=== PATIENT | female | born 1955 | race Caucasian/White ===

== ENCOUNTER 2018-09-06 09:45 | Inpatient (IN) ==
[2018-09-06] MEDS ORDERED: NORMAL SALINE 1,000 ML IV ONE (10:06)
[2018-09-06] MEDS ORDERED: DIATRIZOATE MEGLUMINE, SODIUM 30 ML BTL PO ONE (10:06)
--- NOTE | 2018-09-06 10:17 | ERNOTE ---
Abdominal HPI - Narrative Date of Service: 09/06/18 - General Chief Complaint: Abdominal Pain Time Seen by Provider: 09/06/18 09:59 Source: patient Exam Limitations: no limitations - Immun/Allergies/Home Medications Immunizatons: IMMUNIZATION HX Immunizations Up to Date Yes History of Influenza Vaccine No Hx Pneumococcal Vaccination No Allergies/Adverse Reactions: Allergies Latex, Natural Rubber Allergy (Intermediate, Verified 01/19/18 06:44) welts morphine Allergy (Intermediate, Verified 01/19/18 06:45) Itching Home Medications: HOME MEDICATIONS Omeprazole [Prilosec] 40 mg PO DAILY PRN 01/23/16 [Last Taken Unknown] - History of Present Illness Narrative: Patient presents to the ED for abdominal pain. She relates that she has f requent problems with diverticular disease. She has had approx 4 days of left low abdominal pain. This has been fluctuating intensity but overall worsening. No vomiting but has had low grade fever. Mucous stool but no diarrhea. She has not seen anyone else for this. Pain can be severe at times. Now moderate. No dysuria. Nothing really seems to make it better or worse. Timing: constant, other - fluctuating intensity Quality: severe Activities at Onset: none Modifying Factors - (Improves): Present: other - nothing Modifying Factors - (Worsens): Present: other - nothing Associated Symptoms: Present: fever/chills. Absent: chest pain, diarrhea-gross blood, vomiting, shortness of breath, swelling/mass in abdomen Prior Abdominal Problems: Present: other - diverticular disease Prior Treatment: Absent: recently seen, currently on antibiotics Review of Systems - Review of Systems Constitutional: Present: fever EYE: Present: no symptoms reported ENT: Present: no symptoms reported Respiratory: Absent: shortness of breath Cardiology: Absent: chest pain Gastrointestinal/Abdominal: Present: See HPI Genitourinary: Absent: dysuria Neurological: Absent: weakness All Other Systems: All systems neg except as marked Medical History (Updated 09/06/18 @ 10:17 by Frank Browning MD) Pulmonary hypertension (Chronic) COPD (chronic obstructive pulmonary disease) (Chronic) Acne vulgaris Onset Date: Unknown Cardiac murmur Onset Date: ~11/09/17 Diverticulosis Onset Date: ~2006 Endometriosis Onset Date: Unknown GERD (gastroesophageal reflux disease) Onset Date: ~11/09/17 Myalgia and myositis Onset Date: Unknown Osteoarthritis Onset Date: ~11/09/17 Ovarian cyst Onset Date: ~2005 Tear of meniscus of left knee Onset Date: Unknown Surgical History: Surgical History (Updated 02/23/18 @ 11:55 by Prisca De La Cruz RN) History of appendectomy Onset Date: ~1967 History of arthroscopic knee surgery Onset Date: ~02/12/16 History of bladder suspension procedure Onset Date: ~03/07/08 History of colonoscopy Onset Date: 01/19/18 10/15/06 Tinguely-hyperplastic polyp, extensive sigmoid diverticulosis. 01/19/18 [place]-extensive pancolonic diverticulosis. Recheck 10 yrs. History of esophagogastroduodenoscopy Onset Date: ~04/28/11 Tinguely-moderate chronic inflammation History of salpingo-oophorectomy Onset Date: ~2005 History of total vaginal hysterectomy (TVH) Onset Date: ~1981 History of tubal ligation Onset Date: ~1979 Hx of cholecystectomy Onset Date: ~1957 S/P foot surgery, right Onset Date: ~08/2004 Ureteral stent retained Onset Date: ~2005 Family History: Family History (Updated 12/15/17 @ 10:53 by Prisca De La Cruz RN) Aunt Diabetes Brother Hypertension 3 brothers AAA (abdominal aortic aneurysm) 2 brothers Heart disease 2 brothers w/CABG Diabetes 1 brother Father , age 67 Heart disease Hypertension Grandmother Diabetes Uncle Diabetes Mother , age 77-breast cancer Cancer breast Diabetes Hypertension Brother , age 67-lung cancer No problems noted. Social History: Preferred Language Danish Do you have any christian or No cultural preference? Smoking Status Current every day smoker Have you smoked in the past 12 Yes months Do you dip or chew tobacco No Abuse History No History of abuse Psych History No pertinent hx Alcohol Use occasionally Drug Use none (Last Updated 12/23/17 @ 11:01 by Simon Carias MD) No Social History Section defined Physical Exam - Physical Exam General Appearance: Present: alert, no apparent distress Head Exam: Present: normal inspection, no evidence of injury Eye Exam: Normal inspection: bilateral, PERRL: bilateral Ears, Nose, Throat: Present: normal ENT inspection Neck: Present: normal inspection Respiratory: Present: no respiratory distress, normal breath sounds, no accessory muscle use, lungs clear Cardiovascular/Chest: Present: regular rate, rhythm Gastrointestinal/Abdominal: Present: normal bowel sounds, soft, other - there is left low abdominal tendenress to palpation. NO clear acute peritoneal signs. Non-surgical exam at this point Back Exam: Absent: CVA tenderness (R), CVA tenderness (L) Extremity Exam: Present: normal range of motion Neurological Exam: Present: alert, no motor/sensory deficits Skin Exam: Present: normal color, warm/dry Progress - Results and Orders Patient's Lab Results:: I have reviewed the patient's lab results. - Vital Signs Patient's Vital Signs:: I have reviewed the patient's vital signs. Vital Signs: Vital Signs 09/06/18 10:01 Temperature 37.1 C Pulse Rate 101 H Respiratory Rate 14 Blood Pressure 194/95 H O2 Sat by Pulse Oximetry 96 - CT/Ultrasound CT/Ultrasound Narrative: I reviewed official radiology report for CT scan abd/Pelvis - Progress/Reassessment Chief Complaint: Abdominal Pain Progress Note-Subjective: 09/06/18 14:28 IV fluids and IV antibiotics given. D/W Dr Carias and Dr Cross. [facility] Patient informed and agreeable. Departure Clinical Impression: Abdominal pain, Diverticulitis, Colon perforation - Departure Disposition: Still a patient Condition: Stable Referrals: Drew Cross MD [Primary Care Provider] -
[2018-09-06 10:30] LABS: Hematocrit 44.7 % (37.0-47.0); Hemoglobin 15.4 gm/dL (12.5-16.0); Mean Cell Volume 95.3 fl (78-100); Mean Corpuscular Hemoglobin 32.8 pg (27-31); Mean Corpuscular Hgb Conc 34.5 g/dl (32-36); Mean Platelet Volume 9.9 fl (8-12.5); Neutrophil # 13.1 K/mm3 (1.3-6.0); Neutrophil % 81.5 % (42-75.0); Platelet Count 208 K/mm3 (150-450); Red Blood Count 4.69 M/mm3 (4.2-5.4); Red Cell Distribution Width 13.2 % (11.5-14.0); White Blood Count 16.1 K/mm3 (4.0-10.5)
[2018-09-06 10:42] LABS: Albumin * 3.5 gm/dl (3.4-5.0); Anion Gap 14.6 mmol/L (6.8-13.8); BUN/Creatinine Ratio 13.7 (9.0-21.6); Bilirubin, Total 0.7 mg/dL (0.0-1.1); Ca. Corrected For Albumin 9.2 mg/dL (8.4-10.2); Calcium * 9.1 mg/dL (7.9-10.9); Carbon Dioxide 25.4 mmol/L (24-32.6); Total Protein 8.1 gm/dL (6.2-8.2)
[2018-09-06 10:47] LABS: Urine Bilirubin Negative (NEGATIVE); Urine Blood 25 /ul (NEGATIVE); Urine Ketone Negative (NEGATIVE); Urine Nitrite Negative (NEGATIVE); Urine Protein Negative (NEGATIVE); Urine Specific Gravity <=1.005 SP.GR. (1.005-1.010); Urine Urobilinogen Normal (NORMAL)
[2018-09-06 10:53] LABS: Urine Appearance Clear (CLEAR); Urine Bacteria None Seen; Urine Color Yellow; Urine RBC 0-5 /hpf (0-5); Urine WBC None Seen /hpf (0-5)
[2018-09-06] MEDS ORDERED: PIPERACILLIN SODIUM/TAZOBACTAM 3.375 GM in DEXTROSE 5 % IN WATER 100 ML IV ONE ×2 (13:06)
[2018-09-06] MEDS ORDERED: metroNIDAZOLE/SODIUM CHLORIDE 500 MG/100 ML BAG IV SCH (13:15)
[2018-09-06] MEDS ORDERED: PIPERACILLIN SODIUM/TAZOBACTAM 3.375 GM in DEXTROSE 5 % IN WATER 100 ML IV SCH ×2 (14:45)
[2018-09-06] MEDS ORDERED: NORMAL SALINE 1,000 ML IV PRN (14:45)
--- NOTE | 2018-09-06 15:41 | HP ---
Chief Complaint - Chief Complaint Date of Service: 09/06/18 Time of Service: 15:36 Chief Complaint: Lower abdominal pain, fever and chills History of Present Illness: Patient is 63-year-old white female with past medical history significant for di verticulosis, was in her usual state of health until 3 days prior to admission when she began having lower abdominal pain. The pain continued to worsen, with her having significant mucousy diarrhea, F/C the day prior to admission. The pain reached a threshold where she had to come to the ER and was found to have an elevated WBC to 16K and diverticulitis with perforation on CT. She was admitted to inpatient for bowel rest, IV abx and possibly surgical consult for intervention, though the GS felt this was amenable to just bowel rest and IV abx for now. Medical History (Updated 09/06/18 @ 16:18 by Drwe Cross MD) Pulmonary hypertension (Chronic) COPD (chronic obstructive pulmonary disease) (Chronic) Acne vulgaris Onset Date: Unknown Cardiac murmur Onset Date: ~11/09/17 Diverticulosis Onset Date: ~2006 Endometriosis Onset Date: Unknown GERD (gastroesophageal reflux disease) Onset Date: ~11/09/17 Myalgia and myositis Onset Date: Unknown Osteoarthritis Onset Date: ~11/09/17 Ovarian cyst Onset Date: ~2005 Tear of meniscus of left knee Onset Date: Unknown Surgical History: Surgical History (Updated 02/23/18 @ 11:55 by Prisca De La Cruz RN) History of appendectomy Onset Date: ~1967 History of arthroscopic knee surgery Onset Date: ~02/12/16 History of bladder suspension procedure Onset Date: ~03/07/08 History of colonoscopy Onset Date: 01/19/18 10/15/06 Tinguely-hyperplastic polyp, extensive sigmoid diverticulosis. 01/19/18 [place]-extensive pancolonic diverticulosis. Recheck 10 yrs. History of esophagogastroduodenoscopy Onset Date: ~04/28/11 Tinguely-moderate chronic inflammation History of salpingo-oophorectomy Onset Date: ~2005 History of total vaginal hysterectomy (TVH) Onset Date: ~1981 History of tubal ligation Onset Date: ~1979 Hx of cholecystectomy Onset Date: ~1957 S/P foot surgery, right Onset Date: ~08/2004 Ureteral stent retained Onset Date: ~2005 Family History: Family History (Updated 12/15/17 @ 10:53 by Prisca De La Cruz RN) Aunt Diabetes Brother Hypertension 3 brothers AAA (abdominal aortic aneurysm) 2 brothers Heart disease 2 brothers w/CABG Diabetes 1 brother Father , age 67 Heart disease Hypertension Grandmother Diabetes Uncle Diabetes Mother , age 77-breast cancer Cancer breast Diabetes Hypertension Brother , age 67-lung cancer No problems noted. 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 Smoking Status Current every day smoker Have you smoked in the past 12 Yes months Do you dip or chew tobacco No Abuse History No History of abuse Psych History No pertinent hx Alcohol Use occasionally Drug Use none (Last Updated 12/23/17 @ 11:01 by Simon Carias MD) No Social History Section defined Review Of Systems (GEN) - Review of Systems Generalized/Overall Review: Present: Chills, Fever, Malaise. Absent: Diaphoresis, Fatigue, Weight loss EENTM: Present: No Symptoms Reported Respiratory: Present: Cough. Absent: Shortness of Breath, Wheezing Cardiac: Absent: Chest Pain, Edema Abdominal: Present: Nausea, Abdominal Pain, Diarrhea. Absent: Vomiting, Hematemesis, Constipation, Bright blood from rectum Genitourinary: Present: Frequency. Absent: Burning, Itching, Urgency, Dysuria Musculoskeletal: Present: No Symptoms Reported Neurological: Present: No Symptoms Reported Skin: Present: No Symptoms Reported Endocrine: Present: No Symptoms Reported Immunizations: IMMUNIZATION HX Immunizations Up to Date Yes History of Influenza Vaccine No Hx Pneumococcal Vaccination No Allergies/Adverse Reactions: Allergies Allergy/AdvReac Type Severity Reaction Status Date / Time Latex, Natural Rubber Allergy Intermediate welts Verified 01/19/18 06:44 morphine Allergy Intermediate Itching Verified 01/19/18 06:45 Home Medications: HOME MEDICATIONS Omeprazole [Prilosec] 40 mg PO DAILY PRN 01/23/16 [Last Taken Unknown] Exam - Exam Vital Signs: Vital Signs - Last Taken Temp 37.2 C 09/06/18 14:58 Pulse 82 09/06/18 14:58 Resp 18 09/06/18 14:58 BP 179/88 H 09/06/18 14:58 Pulse Ox 92 L 09/06/18 14:58 Constitutional: Present: Alert, Oriented x3, Cooperative, Mild distress, Overweight ENT Exam: Present: hearing grossly normal Eye Exam: bilateral eye: normal inspection, PERRL, EOMI Neck: Present: supple Respiratory: Present: lungs clear, normal breath sounds, no respiratory distress, no accessory muscle use Cardiovascular/Chest: Present: regular rate, rhythm, systolic murmur - LUSB / Abdomen: Present: soft, nondistended, no rebound tenderness, no hepatospenomegaly, tender - suprapubic area, hypoactive /Rectal: Present: Exam deferred Extremity: Present: no pedal edema Skin Exam: Present: normal color, warm/dry Neurologic: Present: tripe finisher II-XII nml as tested, normal mood/affect Appearance: Present: appropriate appearance, appropriate insight, neat Eye contact: Present: cooperative, good eye contact, normal speech Thoughts: Present: normal thought pattern, no apparent hallucination Diagnostic Studies: Abnormal Lab Results 09/06/18 09/06/18 09/06/18 Range/Units 10:18 10:18 10:39 WBC 16.1 H (4.0-10.5) K/mm3 MCH 32.8 H (27-31) pg Immature Gran # (Auto) 0.05 H (0.000-0.0310) K/mm3 Neutrophils % 81.5 H (42-75.0) % Lymphocytes % 8.5 L (20-51) % Neutrophils # 13.1 H (1.3-6.0) K/mm3 Lymphocytes # 1.37 L (1.5-3.5) k/mm3 Monocytes # 1.4 H (0.0-1.0) k/mm3 ESR (0-15) mm/hr Anion Gap 14.6 H (6.8-13.8) mmol/L Urine Blood 25 H (NEGATIVE) /ul 09/06/18 Range/Units 10:48 WBC (4.0-10.5) K/mm3 MCH (27-31) pg Immature Gran # (Auto) (0.000-0.0310) K/mm3 Neutrophils % (42-75.0) % Lymphocytes % (20-51) % Neutrophils # (1.3-6.0) K/mm3 Lymphocytes # (1.5-3.5) k/mm3 Monocytes # (0.0-1.0) k/mm3 ESR 61 H (0-15) mm/hr Anion Gap (6.8-13.8) mmol/L Urine Blood (NEGATIVE) /ul Laboratory Results WBC 16.1 K/mm3 (4.0-10.5) H 09/06/18 10:18 RBC 4.69 M/mm3 (4.2-5.4) 09/06/18 10:18 Hgb 15.4 gm/dL (12.5-16.0) 09/06/18 10:18 Hct 44.7 % (37.0-47.0) 09/06/18 10:18 MCV 95.3 fl (78-100) 09/06/18 10:18 MCH 32.8 pg (27-31) H 09/06/18 10:18 MCHC 34.5 g/dl (32-36) 09/06/18 10:18 RDW 13.2 % (11.5-14.0) 09/06/18 10:18 Plt Count 208 K/mm3 (150-450) 09/06/18 10:18 MPV 9.9 fl (8-12.5) 09/06/18 10:18 Immature Gran % (Auto) 0.30 % (0.001-0.429) 09/06/18 10:18 Immature Gran # (Auto) 0.05 K/mm3 (0.000-0.0310) H 09/06/18 10:18 81.5 % (42-75.0) H 09/06/18 10:18 8.5 % (20-51) L 09/06/18 10:18 8.9 % (0.0-9) 09/06/18 10:18 0.6 % (0.0-3.0) 09/06/18 10:18 0.2 % (0.0-1.0) 09/06/18 10:18 Nucleated RBC % 0.0 k/mm3 (0-1) 09/06/18 10:18 13.1 K/mm3 (1.3-6.0) H 09/06/18 10:18 1.37 k/mm3 (1.5-3.5) L 09/06/18 10:18 1.4 k/mm3 (0.0-1.0) H 09/06/18 10:18 0.1 k/mm3 (0.0-0.7) 09/06/18 10:18 Absolute Basophils 0.0 k/mm3 (0.0-0.1) 09/06/18 10:18 ESR 61 mm/hr (0-15) H 09/06/18 10:48 Sodium 138 mmol/L (132-142) 09/06/18 10:18 138 mmol/L (130-142) 09/06/18 10:18 Potassium 4.0 mmol/L (3.4-4.6) 09/06/18 10:18 Chloride 102 mmol/L (97-106) 09/06/18 10:18 Carbon Dioxide 25.4 mmol/L (24-32.6) 09/06/18 10:18 14.6 mmol/L (6.8-13.8) H 09/06/18 10:18 BUN 10 mg/dL (3-23) 09/06/18 10:18 0.73 mg/dL (0.4-1.4) 09/06/18 10:18 Est GFR (Non-Af Amer) 86 mL/min (60-130) 09/06/18 10:18 13.7 (9.0-21.6) 09/06/18 10:18 99 mg/dL (70-110) 09/06/18 10:18 Calcium 9.1 mg/dL (7.9-10.9) 09/06/18 10:18 Calcium Adj for Albumin 9.2 mg/dL (8.4-10.2) 09/06/18 10:18 0.7 mg/dL (0.0-1.1) 09/06/18 10:18 AST 21 U/L (0-48) 09/06/18 10:18 ALT 30 U/L (19-67) 09/06/18 10:18 57 U/L (50-170) 09/06/18 10:18 8.1 gm/dL (6.2-8.2) 09/06/18 10:18 3.5 gm/dl (3.4-5.0) 09/06/18 10:18 Yellow 09/06/18 10:39 Clear (CLEAR) 09/06/18 10:39 6.0 pH (5.0-7.0) 09/06/18 10:39 Ur Specific [place] <=1.005 SP.GR. (1.005-1.010) 09/06/18 10:39 Negative mg/dL (NEGATIVE) 09/06/18 10:39 Negative mg/dL (NEGATIVE) 09/06/18 10:39 Negative mg/dL (NEGATIVE) 09/06/18 10:39 25 /ul (NEGATIVE) H 09/06/18 10:39 Negative (NEGATIVE) 09/06/18 10:39 Negative mg/dl (NEGATIVE) 09/06/18 10:39 Normal EU/dl (NORMAL) 09/06/18 10:39 Ur Leukocyte Esterase Negative /ul (NEGATIVE) 09/06/18 10:39 0-5 /hpf (0-5) 09/06/18 10:39 None seen /hpf (0-5) 09/06/18 10:39 Ur Epithelial Cells None seen /hpf (0-5) 09/06/18 10:39 None seen (NONE) 09/06/18 10:39 No culture indicated 09/06/18 10:39 Assessment/Plan - Assessment/Plan (1) Diverticulitis of colon with perforation Assessment: She will need IV abx and bowel rest. Typical time frame is 7 days, depending on how she does clinically. Will follow CBC and ESR (which was 64) and her clinical sx. Consider at least doing clear liquids in a few days if things are getting better. Will do pain control with toradol for now. consider dilaudid if > 5 days of treatment needed. Problem: Acute Qualifiers: Diverticulitis bleeding: without bleeding Qualified Code(s): K57.20 - Diverticulitis of large intestine with perforation and abscess without bleeding (2) COPD (chronic obstructive pulmonary disease) Assessment: stable, no treatment at this time. Problem: Chronic Qualifiers: COPD type: chronic bronchitis Chronic bronchitis type: simple Qualified Code(s): J41.0 - Simple chronic bronchitis (3) Discharge planning issues Assessment: Given patients perforation of her colon, her elevated WBC to 16K and her F/C, she will need to be inpatient for IVF, IV abx and bowel rest. She is at high risk for morbidity, if not mortality if discharged home too quickly without adequate bowel rest and IV abx. She is also tachycardic with elevated BP and PE findings consistent with dehydration, so will give her a fluid bolus and then IVF to rehydrate her, which would be very difficult to do outpatient. I anticipate her being here a min. of 2 midnights with repeat CBC's and ESR and PE to follow progress of her perforation and CMP to follow K levels due to her diverticulitis and IVF. We will rest her bowel a minimum of 24, more likely 48hrs before we start her on a clear liquid diet, advancing as tolerated, monitoring sx and labs to assess improvement or worsening. Will repeat CT if she declines with surgical consult for possible surgery. Surgery is aware of the situation at this time. Problem: Acute
[2018-09-06] MEDS: NORMAL SALINE 1,000 ML IV PRN (16:40)
[2018-09-06] MEDS: KETOROLAC TROMETHAMINE 30 MG/ML VIAL IV PRN (17:07)
[2018-09-06] MEDS: PANTOPRAZOLE SODIUM 40 MG in NORMAL SALINE 100 ML IV SCH (17:09)
[2018-09-06] MEDS: PIPERACILLIN SODIUM/TAZOBACTAM 3.375 GM in DEXTROSE 5 % IN WATER 100 ML IV SCH ×2 (20:43)
[2018-09-06] MEDS: SACCHAROMYCES BOULARDII 250 MG CAPSULE PO SCH (20:43)
[2018-09-07] MEDS: NORMAL SALINE 1,000 ML IV PRN ×2 (00:22→08:29)
[2018-09-07] MEDS: PIPERACILLIN SODIUM/TAZOBACTAM 3.375 GM in DEXTROSE 5 % IN WATER 100 ML IV SCH ×6 (05:01→21:45)
[2018-09-07 05:33] LABS: Hematocrit 40.1 % (37.0-47.0); Hemoglobin 13.3 gm/dL (12.5-16.0); Mean Cell Volume 96.6 fl (78-100); Mean Corpuscular Hgb Conc 33.2 g/dl (32-36); Mean Platelet Volume 9.6 fl (8-12.5); Neutrophil # 9.2 K/mm3 (1.3-6.0); Neutrophil % 78.1 % (42-75.0); Platelet Count 174 K/mm3 (150-450); Red Blood Count 4.15 M/mm3 (4.2-5.4); Red Cell Distribution Width 13.2 % (11.5-14.0); White Blood Count 11.8 K/mm3 (4.0-10.5)
--- NOTE | 2018-09-07 07:15 | PN ---
Subjective - Date and Time Seen Date: 09/07/18 Time: 07:08 Subjective Narrative: Pt. states she is feeling better this am. Diarrhea throughout the night, but no blood and no more F/C. Denies nausea and vomiting. Is actually getting hungry. Abdominal pain is greatly improved. Denies SOB or cough. Objective - Review of Systems Generalized/Overall Review: Denies: Chills, Fever EENTM: Reports: No Symptoms Reported Respiratory: Denies: Cough, Shortness of Breath Cardiac: Denies: Chest Pain Abdominal: Reports: Abdominal Pain, Diarrhea. Denies: Nausea, Vomiting, Constipation, Bright blood from rectum Genitourinary Symptoms: Reports: No Symptoms Reported Musculoskeletal Complaints: Reports: No Symptoms Reported Neurological: Reports: No Symptoms Reported Skin: Reports: No Symptoms Reported Endocrine: Reports: No Symptoms Reported - Vitals Vitals: Last Vital Signs Temp 36.8 C 09/07/18 03:00 Pulse 81 09/07/18 03:00 Resp 18 09/07/18 03:00 BP 143/70 09/07/18 03:00 Pulse Ox 93 09/07/18 03:00 - Abnormal Lab Findings Abnormal Lab Findings: Abnormal Lab Results 09/06/18 09/06/18 09/06/18 Range/Units 10:18 10:18 10:39 WBC 16.1 H (4.0-10.5) K/mm3 RBC (4.2-5.4) M/mm3 MCH 32.8 H (27-31) pg Immature Gran # (Auto) 0.05 H (0.000-0.0310) K/mm3 Neutrophils % 81.5 H (42-75.0) % Lymphocytes % 8.5 L (20-51) % Neutrophils # 13.1 H (1.3-6.0) K/mm3 Lymphocytes # 1.37 L (1.5-3.5) k/mm3 Monocytes # 1.4 H (0.0-1.0) k/mm3 ESR (0-15) mm/hr Anion Gap 14.6 H (6.8-13.8) mmol/L Urine Blood 25 H (NEGATIVE) /ul 09/06/18 09/07/18 Range/Units 10:48 05:15 WBC 11.8 H D (4.0-10.5) K/mm3 RBC 4.15 L (4.2-5.4) M/mm3 MCH 32.0 H (27-31) pg Immature Gran # (Auto) (0.000-0.0310) K/mm3 Neutrophils % 78.1 H (42-75.0) % Lymphocytes % 11.6 L (20-51) % Neutrophils # 9.2 H (1.3-6.0) K/mm3 Lymphocytes # 1.37 L (1.5-3.5) k/mm3 Monocytes # (0.0-1.0) k/mm3 ESR 61 H (0-15) mm/hr Anion Gap (6.8-13.8) mmol/L Urine Blood (NEGATIVE) /ul - Exam Constitutional: Present: Alert, Oriented x3, Cooperative, Mild distress ENT Exam: Present: hearing grossly normal Neck: Present: supple Respiratory: Present: lungs clear, normal breath sounds, no respiratory distress, no accessory muscle use Cardiovascular/Chest: Present: regular rate, rhythm, systolic murmur - LUSB 3- 08/20 Abdomen: Present: Normal bowel sounds, soft, nondistended, tender - suprapubic area. Absent: rebound tenderness /Rectal: Present: Exam deferred Extremity: Present: no pedal edema, no calf tenderness Skin Exam: Present: normal color Neurologic: Present: laundry presser II-XII nml as tested, normal mood/affect, oriented x 3 Appearance: Present: appropriate appearance, appropriate insight, neat Eye contact: Present: cooperative, good eye contact, normal speech Thoughts: Present: normal thought pattern, no apparent hallucination Assessment/Plan - Problems/Diagnosis (1) Diverticulitis of colon with perforation Problem: Acute Qualifiers: Diverticulitis bleeding: without bleeding Qualified Code(s): K57.20 - Diverticulitis of large intestine with perforation and abscess without bleeding Narrative: improving based on WBC down to 11K this am and improved sx. will continue bowel rest, IVF, IV abx and recheck CBC and ESR in AM. When WBC has normalized and ESR < 20 we can trial her on clear liquids, but continue IV abx. (2) COPD (chronic obstructive pulmonary disease) Problem: Chronic Qualifiers: COPD type: chronic bronchitis Chronic bronchitis type: simple Qualified Code(s): J41.0 - Simple chronic bronchitis Narrative: stable, no issues or treatment at this time needed. (3) Discharge planning issues Problem: Acute Narrative: typical course is 7 days of IV abx. She is greatly improved from yesterday, but will need to transition to a diet prior to going home, even if it is a clear liquid diet. Will continue to follow sx and labs. Discharge will be pending how she does, whether we do trial with oral abx prior to discharge or finish the IV abx course. The will depend on sx, vitals and labs as well as how any a dvancement of diet does for her. Advancing to fast will end up in her getting worse and possibly needing surgery or interventional drainage of any abscess, which we hope to avoid.
[2018-09-07] MEDS: SACCHAROMYCES BOULARDII 250 MG CAPSULE PO SCH ×2 (10:13→21:44)
[2018-09-07] MEDS: KETOROLAC TROMETHAMINE 30 MG/ML VIAL IV PRN (10:21)
[2018-09-07] MEDS: PANTOPRAZOLE SODIUM 40 MG in NORMAL SALINE 100 ML IV SCH (16:11)
[2018-09-07] MEDS ORDERED: ONDANSETRON HCL/PF 2 MG/ML VIAL IV PRN (16:13)
[2018-09-08] MEDS: KETOROLAC TROMETHAMINE 30 MG/ML VIAL IV PRN ×2 (01:46→19:05)
[2018-09-08] MEDS: PIPERACILLIN SODIUM/TAZOBACTAM 3.375 GM in DEXTROSE 5 % IN WATER 100 ML IV SCH ×6 (04:40→20:59)
[2018-09-08 05:17] LABS: Hematocrit 38.4 % (37.0-47.0); Hemoglobin 12.9 gm/dL (12.5-16.0); Mean Corpuscular Hemoglobin 32.3 pg (27-31); Mean Corpuscular Hgb Conc 33.6 g/dl (32-36); Mean Platelet Volume 9.1 fl (8-12.5); Neutrophil # 9.1 K/mm3 (1.3-6.0); Neutrophil % 77.8 % (42-75.0); Platelet Count 168 K/mm3 (150-450); Red Cell Distribution Width 12.7 % (11.5-14.0); White Blood Count 11.6 K/mm3 (4.0-10.5)
[2018-09-08 05:48] LABS: Albumin * 2.7 gm/dl (3.4-5.0); Anion Gap 14.1 mmol/L (6.8-13.8); BUN/Creatinine Ratio 15.1 (9.0-21.6); Bilirubin, Total 0.6 mg/dL (0.0-1.1); Ca. Corrected For Albumin 9.1 mg/dL (8.4-10.2); Calcium * 8.4 mg/dL (7.9-10.9); Carbon Dioxide 25.3 mmol/L (24-32.6); Potassium 3.4 mmol/L (3.4-4.6); Total Protein 6.8 gm/dL (6.2-8.2)
--- NOTE | 2018-09-08 07:24 | PN ---
Subjective - Date and Time Seen Date: 09/08/18 Time: 07:14 Subjective Narrative: Pt. states she is feeling better this am. Diarrhea throughout the night, but no blood and no F/C. Denies nausea and vomiting. Is actually getting hungry. Abdominal pain is greatly improved. Denies SOB or cough. Still discomfort in the suprapubic, RLQ area, but it continues to improve. She would like to try a clear liquid diet as she is hungry. she felt a little dizzy and nauseated yesterday afternoon, but this seems to have resolved. Objective - Review of Systems Generalized/Overall Review: Reports: No Symptoms Reported EENTM: Reports: No Symptoms Reported Respiratory: Reports: No Symptoms Reported Cardiac: Reports: No Symptoms Reported Abdominal: Reports: Abdominal Pain, Diarrhea. Denies: Nausea, Vomiting, Bright blood from rectum Genitourinary Symptoms: Reports: No Symptoms Reported Musculoskeletal Complaints: Reports: No Symptoms Reported Neurological: Reports: No Symptoms Reported Skin: Reports: No Symptoms Reported Endocrine: Reports: No Symptoms Reported - Vitals Vitals: Last Vital Signs Temp 36.7 C 09/08/18 06:56 Pulse 64 09/08/18 06:56 Resp 17 09/08/18 06:56 BP 101/67 09/08/18 06:56 Pulse Ox 97 09/08/18 06:56 - Abnormal Lab Findings Abnormal Lab Findings: Abnormal Lab Results 09/08/18 09/08/18 09/08/18 Range/Units 05:10 05:10 05:10 WBC 11.6 H (4.0-10.5) K/mm3 RBC 4.00 L (4.2-5.4) M/mm3 MCH 32.3 H (27-31) pg Immature Gran # (Auto) 0.04 H (0.000-0.0310) K/mm3 Neutrophils % 77.8 H (42-75.0) % Lymphocytes % 11.8 L (20-51) % Neutrophils # 9.1 H (1.3-6.0) K/mm3 Lymphocytes # 1.37 L (1.5-3.5) k/mm3 ESR 59 H (0-15) mm/hr Anion Gap 14.1 H (6.8-13.8) mmol/L AST 65 H (0-48) U/L ALT 97 H (19-67) U/L Albumin 2.7 L (3.4-5.0) gm/dl - Exam Constitutional: Present: Alert, Oriented x3, Cooperative, No distress ENT Exam: Present: hearing grossly normal Neck: Present: supple Respiratory: Present: lungs clear, normal breath sounds, no respiratory distress, no accessory muscle use Cardiovascular/Chest: Present: regular rate, rhythm, systolic murmur Abdomen: Present: Normal bowel sounds, soft, nondistended, no rebound tenderness, no hepatospenomegaly, tender - RLQ and suprapubic area. more firm than other areas or abdomen, but not rigid and no RB tenderness., firm. Absent: guarding, rigidity, rebound tenderness Extremity: Present: no pedal edema Skin Exam: Present: normal color Neurologic: Present: handle turner II-XII nml as tested, normal mood/affect, oriented x 3 Appearance: Present: appropriate appearance, appropriate insight, neat, no memory impairment Eye contact: Present: cooperative, good eye contact, normal speech Thoughts: Present: normal thought pattern, no apparent hallucination Assessment/Plan - Problems/Diagnosis (1) Diverticulitis of colon with perforation Problem: Acute Qualifiers: Diverticulitis bleeding: without bleeding Qualified Code(s): K57.20 - Diverticulitis of large intestine with perforation and abscess without bleeding Narrative: improving symptom valente, but WBC and ESR didn't change a whole lot since yesterday. Will continue IV abx, do trial with clear liquids today. If sx worsen or CBC and ESR worsen in the am will make her NPO and consider surgery consult vs repeating CT. LFT's were slightly up this am. could be from substance in the abdomen vs SE of the abx. Will follow for now as they are only slightly up and she has no complaints and no findings on exam. (2) COPD (chronic obstructive pulmonary disease) Problem: Chronic Qualifiers: COPD type: chronic bronchitis Chronic bronchitis type: simple Qualified Code(s): J41.0 - Simple chronic bronchitis Narrative: stable, no complaints and no findings that are concerning for needing treatment. (3) Discharge planning issues Problem: Acute Narrative: Anticipate her being here for several more days monitoring labs and sx and diet toleration. She is better, but still in that area where things could easily worsen, so needs continued monitoring until WBC normalizes and sx are minimal and she is tolerating at least clear liquids well.
[2018-09-08] MEDS: NORMAL SALINE 1,000 ML IV PRN ×2 (07:35→18:27)
[2018-09-08] MEDS: SACCHAROMYCES BOULARDII 250 MG CAPSULE PO SCH ×2 (10:05→20:24)
[2018-09-08] MEDS: PANTOPRAZOLE SODIUM 40 MG in NORMAL SALINE 100 ML IV SCH (18:04)
[2018-09-09] MEDS: NORMAL SALINE 1,000 ML IV PRN (02:37)
[2018-09-09 05:18] LABS: Hematocrit 38.3 % (37.0-47.0); Mean Cell Volume 95.3 fl (78-100); Mean Corpuscular Hemoglobin 32.3 pg (27-31); Mean Corpuscular Hgb Conc 33.9 g/dl (32-36); Mean Platelet Volume 9.6 fl (8-12.5); Neutrophil # 4.6 K/mm3 (1.3-6.0); Neutrophil % 70.3 % (42-75.0); Platelet Count 179 K/mm3 (150-450); Red Blood Count 4.02 M/mm3 (4.2-5.4); Red Cell Distribution Width 12.6 % (11.5-14.0); White Blood Count 6.6 K/mm3 (4.0-10.5)
[2018-09-09 05:32] LABS: Albumin * 2.7 gm/dl (3.4-5.0); Anion Gap 13.4 mmol/L (6.8-13.8); BUN/Creatinine Ratio 10.8 (9.0-21.6); Bilirubin, Total 0.6 mg/dL (0.0-1.1); Ca. Corrected For Albumin 8.8 mg/dL (8.4-10.2); Calcium * 8.1 mg/dL (7.9-10.9); Potassium 3.4 mmol/L (3.4-4.6); Total Protein 6.6 gm/dL (6.2-8.2)
[2018-09-09] MEDS: PIPERACILLIN SODIUM/TAZOBACTAM 3.375 GM in DEXTROSE 5 % IN WATER 100 ML IV SCH ×2 (05:50)
--- NOTE | 2018-09-09 06:57 | PN ---
Subjective - Date and Time Seen Date: 09/09/18 Time: 06:50 Subjective Narrative: Pt. states she is feeling better this am. Diarrhea throughout the night, but no blood and no F/C. Denies nausea and vomiting. Is actually getting hungry. Abdominal pain is greatly improved. Denies SOB or cough. Still discomfort in the suprapubic, RLQ area, but it continues to improve. She stated the clear liquid diet caused her to feel a little bloated, but not more pain, but did back off on it because of this. Objective - Review of Systems Generalized/Overall Review: Denies: Chills, Fever EENTM: Reports: No Symptoms Reported Respiratory: Denies: Cough, Shortness of Breath Cardiac: Denies: Chest Pain Abdominal: Denies: Nausea, Vomiting, Constipation, Diarrhea, Bright blood from rectum Genitourinary Symptoms: Reports: No Symptoms Reported Musculoskeletal Complaints: Reports: No Symptoms Reported Neurological: Reports: No Symptoms Reported Skin: Reports: No Symptoms Reported Endocrine: Reports: No Symptoms Reported - Vitals Vitals: Last Vital Signs Temp 36.8 C 09/09/18 02:00 Pulse 63 09/09/18 02:00 Resp 18 09/09/18 02:00 BP 149/71 09/09/18 02:00 Pulse Ox 95 09/09/18 02:00 - Abnormal Lab Findings Abnormal Lab Findings: Abnormal Lab Results 09/09/18 09/09/18 09/09/18 Range/Units 05:05 05:05 05:05 RBC 4.02 L (4.2-5.4) M/mm3 MCH 32.3 H (27-31) pg Lymphocytes % 17.5 L (20-51) % Monocytes % 9.1 H (0.0-9) % Lymphocytes # 1.15 L (1.5-3.5) k/mm3 ESR 55 H (0-15) mm/hr AST 73 H (0-48) U/L ALT 122 H (19-67) U/L Albumin 2.7 L (3.4-5.0) gm/dl - Exam Constitutional: Present: Alert, Oriented x3, Cooperative, No distress ENT Exam: Present: hearing grossly normal Neck: Present: supple Respiratory: Present: lungs clear, normal breath sounds, no respiratory distress, no accessory muscle use Cardiovascular/Chest: Present: regular rate, rhythm, systolic murmur Abdomen: Present: Normal bowel sounds, soft, nontender, nondistended, no rebound tenderness, no hepatospenomegaly, firm - RLQ Extremity: Present: no pedal edema, no calf tenderness Skin Exam: Present: normal color Neurologic: Present: railroad mechanic II-XII nml as tested, normal mood/affect, oriented x 3 Appearance: Present: appropriate appearance, appropriate insight, neat, no memory impairment Eye contact: Present: cooperative, good eye contact, normal speech Thoughts: Present: normal thought pattern, no apparent hallucination Assessment/Plan - Problems/Diagnosis (1) Diverticulitis of colon with perforation Problem: Acute Qualifiers: Diverticulitis bleeding: without bleeding Qualified Code(s): K57.20 - Diverticulitis of large intestine with perforation and abscess without bleeding Narrative: improving - WBC has normalized, ESR still high. Will transition to PO abx and see if she continues to do well, with chance of dc home in am if things go well. (2) COPD (chronic obstructive pulmonary disease) Problem: Chronic Qualifiers: COPD type: chronic bronchitis Chronic bronchitis type: simple Qualified Code(s): J41.0 - Simple chronic bronchitis Narrative: stable (3) Elevated LFTs Problem: Acute Narrative: most likely due to zosyn. changing abx today so this should help. she has no RUQ pain so doubt it is related to perforation. (4) Discharge planning issues Problem: Acute Narrative: Pt. is doing very well and is a very reliable pt. she would like to go home soon and so we will change to PO meds today. If WBC and ESR remain improved we can discharge her home on a clear liquid diet until abx course is completed.
[2018-09-09] MEDS: CIPROFLOXACIN HCL 500 MG TABLET PO SCH ×2 (08:07→20:47)
[2018-09-09] MEDS: metroNIDAZOLE 500 MG TABLET PO SCH ×3 (08:07→22:21)
[2018-09-09] MEDS: SACCHAROMYCES BOULARDII 250 MG CAPSULE PO SCH ×2 (08:08→20:47)
[2018-09-09] MEDS ORDERED: LISINOPRIL 10 MG TABLET PO SCH (13:00)
[2018-09-09] MEDS ORDERED: ASPIRIN 325 MG TABLET.DR PO SCH (13:15)
[2018-09-09] MEDS: PANTOPRAZOLE SODIUM 40 MG in NORMAL SALINE 100 ML IV SCH (17:14)
[2018-09-10 05:30] LABS: Hematocrit 38.9 % (37.0-47.0); Hemoglobin 13.5 gm/dL (12.5-16.0); Mean Cell Volume 93.7 fl (78-100); Mean Corpuscular Hemoglobin 32.5 pg (27-31); Mean Corpuscular Hgb Conc 34.7 g/dl (32-36); Mean Platelet Volume 9.1 fl (8-12.5); Neutrophil # 4.5 K/mm3 (1.3-6.0); Neutrophil % 69.4 % (42-75.0); Platelet Count 204 K/mm3 (150-450); Red Blood Count 4.15 M/mm3 (4.2-5.4); Red Cell Distribution Width 12.2 % (11.5-14.0); White Blood Count 6.5 K/mm3 (4.0-10.5)
[2018-09-10 06:11] LABS: Anion Gap 11.3 mmol/L (6.8-13.8); BUN/Creatinine Ratio 9.3 (9.0-21.6); Bilirubin, Total 0.5 mg/dL (0.0-1.1); Ca. Corrected For Albumin 9.4 mg/dL (8.4-10.2); Calcium * 8.9 mg/dL (7.9-10.9); Potassium 3.3 mmol/L (3.4-4.6); Total Protein 7.1 gm/dL (6.2-8.2)
[2018-09-10] MEDS: metroNIDAZOLE 500 MG TABLET PO SCH (07:38)
--- NOTE | 2018-09-10 08:26 | DS ---
(1) Diverticulitis of colon with perforation Problem: Acute Qualifiers: Diverticulitis bleeding: without bleeding Qualified Code(s): K57.20 - Diverticulitis of large intestine with perforation and abscess without bleeding (2) COPD (chronic obstructive pulmonary disease) Problem: Chronic Qualifiers: COPD type: chronic bronchitis Chronic bronchitis type: simple Qualified Code(s): J41.0 - Simple chronic bronchitis (3) Elevated LFTs Problem: Acute (4) Discharge planning issues Problem: Acute Description of Stay: Pt. admitted for diverticulitis with perforation. GS felt it was amenable to bowel rest, with IV abx, which was done with her getting IVF and IV zosyn. On HD#3 her WBC had normalized to 6K from 16K and she was feeling good, so her diet was advanced to clears and she was changed to oral abx. Her WBC remained 6K with no significant increase in her ESR, so it was felt on HD#4 that she could safely go home to finish her treatment on oral abx and clear liquids. She is a very reliable patient and will pay attention to her sx well. She did have a slight elevation of her LFT's, felt to be due to the zosyn and seemed to be confirmed as her LFTs improved (though didn't normalize yet) after stopping the zosyn. Her K was 3.3 at time of discharge, most likely from lack of diet and from the IVF and diverticulitis. She can correct this with oral hydration outpt. Will recheck labs for K and LFTs at f/u next wednesday. BP's were elevated in the hospital, but pt. believes it was due to pain and not sleeping well. She declined the lisinopril order done in the hospital. will follow outpt. Some of the elevation could be from the toradol as well. She can do 800mg ibuprofen OTC for pain, Q8hrs. d/w her in hospital. Procedures Performed: none Results and Findings: Lab Pending Results 09/06/18 10:18: WBC 16.1 H, RBC 4.69, Hgb 15.4, Hct 44.7, MCV 95.3, MCH 32.8 H, MCHC 34.5, RDW 13.2, Plt Count 208, MPV 9.9, Immature Gran % (Auto) 0.30, Immature Gran # (Auto) 0.05 H, Neutrophils % 81.5 H, Lymphocytes % 8.5 L, Monocytes % 8.9, Eosinophils % 0.6, Basophils % 0.2, Nucleated RBC % 0.0, Neutrophils # 13.1 H, Lymphocytes # 1.37 L, Monocytes # 1.4 H, Eosinophils # 0.1, Absolute Basophils 0.0 09/06/18 10:18: Sodium 138, Plasma Sodium 138, Potassium 4.0, Chloride 102, Carbon Dioxide 25.4, Anion Gap 14.6 H, BUN 10, Creatinine 0.73, Est GFR (Non-Af Amer) 86, BUN/Creatinine Ratio 13.7, Random Glucose 99, Calcium 9.1, Calcium Adj for Albumin 9.2, Total Bilirubin 0.7, AST 21, ALT 30, Alkaline Phosphatase 57, Total Protein 8.1, Albumin 3.5 09/06/18 10:39: Urine Color Yellow, Urine Appearance Clear, Urine pH 6.0, Ur Specific [place] <=1.005, Urine Protein Negative, Urine Glucose (UA) Negative, Urine Ketones Negative, Urine Blood 25 H, Urine Nitrate Negative, Urine Bilirubin Negative, Urine Urobilinogen Normal, Ur Leukocyte Esterase Negative, Urine RBC 0-5, Urine WBC None seen, Ur Epithelial Cells None seen, Urine Bacteria None seen, Urine Culture Comments No culture indicated 09/06/18 10:48: ESR 61 H 09/07/18 05:15: WBC 11.8 H D, RBC 4.15 L, Hgb 13.3, Hct 40.1, MCV 96.6, MCH 32.0 H, MCHC 33.2, RDW 13.2, Plt Count 174, MPV 9.6, Immature Gran % (Auto) 0.30, Immature Gran # (Auto) 0.03, Neutrophils % 78.1 H, Lymphocytes % 11.6 L, Monocytes % 8.6, Eosinophils % 1.2, Basophils % 0.2, Nucleated RBC % 0.0, Neutrophils # 9.2 H, Lymphocytes # 1.37 L, Monocytes # 1.0, Eosinophils # 0.1, Absolute Basophils 0.0 09/08/18 05:10: WBC 11.6 H, RBC 4.00 L, Hgb 12.9, Hct 38.4, MCV 96.0, MCH 32.3 H, MCHC 33.6, RDW 12.7, Plt Count 168, MPV 9.1, Immature Gran % (Auto) 0.30, Immature Gran # (Auto) 0.04 H, Neutrophils % 77.8 H, Lymphocytes % 11.8 L, Monocytes % 8.7, Eosinophils % 1.2, Basophils % 0.2, Nucleated RBC % 0.0, Neutrophils # 9.1 H, Lymphocytes # 1.37 L, Monocytes # 1.0, Eosinophils # 0.1, Absolute Basophils 0.0 09/08/18 05:10: ESR 59 H 09/08/18 05:10: Sodium 141, Plasma Sodium 141, Potassium 3.4, Chloride 105, Carbon Dioxide 25.3, Anion Gap 14.1 H, BUN 11, Creatinine 0.73, Est GFR (Non-Af Amer) 86, BUN/Creatinine Ratio 15.1, Random Glucose 82, Calcium 8.4, Calcium Adj for Albumin 9.1, Total Bilirubin 0.6, AST 65 H, ALT 97 H, Alkaline Phosphatase 69, Total Protein 6.8, Albumin 2.7 L 09/09/18 05:05: Sodium 140, Plasma Sodium 140, Potassium 3.4, Chloride 105, Carbon Dioxide 25.0, Anion Gap 13.4, BUN 7, Creatinine 0.65, Est GFR (Non-Af Amer) 98, BUN/Creatinine Ratio 10.8, Random Glucose 87, Calcium 8.1, Calcium Adj for Albumin 8.8, Total Bilirubin 0.6, AST 73 H, ALT 122 H, Alkaline Phosphatase 78, Total Protein 6.6, Albumin 2.7 L 09/09/18 05:05: WBC 6.6 D, RBC 4.02 L, Hgb 13.0, Hct 38.3, MCV 95.3, MCH 32.3 H, MCHC 33.9, RDW 12.6, Plt Count 179, MPV 9.6, Immature Gran % (Auto) 0.20, Immature Gran # (Auto) 0.01, Neutrophils % 70.3, Lymphocytes % 17.5 L, Monocytes % 9.1 H, Eosinophils % 2.4, Basophils % 0.5, Nucleated RBC % 0.0, Neutrophils # 4.6, Lymphocytes # 1.15 L, Monocytes # 0.6, Eosinophils # 0.2, Absolute Basophils 0.0 09/09/18 05:05: ESR 55 H 09/10/18 05:25: WBC 6.5, RBC 4.15 L, Hgb 13.5, Hct 38.9, MCV 93.7, MCH 32.5 H, MCHC 34.7, RDW 12.2, Plt Count 204, MPV 9.1, Immature Gran % (Auto) 0.30, Immature Gran # (Auto) 0.02, Neutrophils % 69.4, Lymphocytes % 16.6 L, Monocytes % 10.9 H, Eosinophils % 2.3, Basophils % 0.5, Nucleated RBC % 0.0, Neutrophils # 4.5, Lymphocytes # 1.07 L, Monocytes # 0.7, Eosinophils # 0.2, Absolute Basophils 0.0 09/10/18 05:25: ESR 58 H 09/10/18 05:25: Sodium 140, Plasma Sodium 140, Potassium 3.3 L, Chloride 103, Carbon Dioxide 29.0, Anion Gap 11.3, BUN 7, Creatinine 0.75, Est GFR (Non-Af Amer) 83, BUN/Creatinine Ratio 9.3, Random Glucose 96, Calcium 8.9, Calcium Adj for Albumin 9.4, Total Bilirubin 0.5, AST 53 H, ALT 114 H, Alkaline Phosphatase 73, Total Protein 7.1, Albumin 3.0 L Discharge Location: Home Disposition: Home self-care Condition: Good Discharge Activity: Activity as tolerated Discharge Diet: Clear Liquids Referrals: Drew Cross MD [Primary Care Provider] - 09/16/18 Prescriptions (Any new or edited meds): Ciprofloxacin HCl [Cipro] 500 mg PO BID #14 tab metroNIDAZOLE [Flagyl] 500 mg PO Q8H #21 tab Complete Home Medications List: Complete Home Medication List: Omeprazole [Prilosec] 40 mg PO DAILY PRN 01/23/16 Aspirin [Aspirin Enteric Coated] 325 mg PO DAILY tablet. 09/10/18 Ciprofloxacin HCl [Cipro] 500 mg PO BID #14 tab 09/10/18 Saccharomyces Boulardii [Florastor] 250 mg PO BID capsule 09/10/18 metroNIDAZOLE [Flagyl] 500 mg PO Q8H #21 tab 09/10/18
[2018-09-10 09:29] VITALS: BP 175/83
== END 2018-09-10 09:40 | disposition home or self-care (01) | DRG 392 ==
LOC: ER 09:45 → MS 09:45 → OBSVTOIN 14:37 → MS 14:50
PROVIDERS: ADMIT Family Medicine; ATTEND Family Medicine
DX: K21.9 Gastro-esophageal reflux disease without esophagitis; R94.5 Abnormal results of liver function studies; K57.30 Diverticulosis of large intestine without perforation or abscess without bleeding; R19.7 Diarrhea, unspecified; K76.0 Fatty (change of) liver, not elsewhere classified; E87.6 Hypokalemia; E86.0 Dehydration; K57.20 Diverticulitis of large intestine with perforation and abscess without bleeding; J44.9 Chronic obstructive pulmonary disease, unspecified; I27.20 Pulmonary hypertension, unspecified; F17.210 Nicotine dependence, cigarettes, uncomplicated
CPT/HCPCS: 36415; 74177; 80053; 81001; 85025; 85652; 96361; 96365; 99285; J2405; Q9967